=== PATIENT | female | born 1935 | race Caucasian/White ===

== ENCOUNTER → 2017-02-24 | Outpatient (CLI) | payer MEDICARE, OTHER | END | disposition home or self-care (01) | LOC: GMAH 10:19 | PROVIDERS: ATTEND Family Medicine | DX: E78.2 Mixed hyperlipidemia (principal) ==

== ENCOUNTER 2018-05-10 16:41 | Emergency (ER) | payer MEDICARE, OTHER ==
--- NOTE | 2018-05-10 17:24 | ED.PDOC ---
History of Present Illness - General Chief Complaint: Trauma Stated Complaint: left elbow, knee and hip pain Time Seen by Provider: 05/10/18 17:23 Source: patient, family Exam Limitations: no limitations - History of Present Illness Initial Comments: Yee Disla 83 y/o female stated pulling out weed on her backyard and sa she pulled it up fell on her left side with dull ache on hips and hips after the incident.Denies neck or head injuries.Also had t-102 after it was taken in ER and patient didn't know that she was febrile.Denies chills ,cough,dysuria. Timing/Duration: 1-3 hours Severity: moderate Improving Factors: nothing Worsening Factors: nothing Allergies/Adverse Reactions: Allergies NO KNOWN ALLERGY Allergy (Unverified 08/21/14 19:20) Home Medications: Ambulatory Orders Carvedilol [Coreg] 3.125 mg PO BID #30 tab 08/30/14 diltiaZEM HCL TAB [Cardizem Tab] 30 mg PO QID #60 tab 08/30/14 Eliquis 2.5 mg PO ONCE 05/10/18 levoFLOXacin [Levaquin] 500 mg PO DAILY 7 Days #7 tab 05/10/18 Review of Systems - Review of Systems Constitutional: States: no symptoms reported EENTM: States: no symptoms reported Respiratory: States: no symptoms reported Cardiology: States: no symptoms reported Gastrointestinal/Abdominal: States: no symptoms reported Genitourinary: States: no symptoms reported Musculoskeletal: States: see HPI Skin: States: see HPI Past Medical History (General) - Patient Medical History Hx Stroke: No Hx of COPD: No Hx Cardiac Disorders: No Hx Congestive Heart Failure: No Hx Hypertension: Yes Hx Diabetes: No Hx Cancer: No Hx Hepatitis C: No Hx MRSA: No Surgical History: appendectomy, cholecystectomy - Vaccination History Hx Tetanus, Diphtheria Vaccination: - unknown Hx Influenza Vaccination: No Hx Pneumococcal Vaccination: Yes - Social History Hx Tobacco Use: No Hx Alcohol Use: No Hx Substance Use: No Hx Substance Use Treatment: No Hx Physical Abuse: No Hx Emotional Abuse: No - Activities of Daily Living Patient Lives Alone: No Grooming Ability: Independent Eating (Feeding) Ability: Independent Toileting Ability: Independent Family Medical History - Family History Mother Family History: Unknown Hx Cardiac Disease: Yes - multiple family members Physical Exam - Physical Exam General Appearance: Alert, Comfortable, No apparent distress Eye Exam: bilateral normal Ears, Nose, Throat: hearing grossly normal, normal ENT inspection Neck: non-tender, full range of motion, supple, normal inspection Respiratory: chest non-tender, lungs clear, normal breath sounds, no respiratory distress Cardiovascular/Chest: normal peripheral pulses, regular rate, rhythm, no murmur Peripheral Pulses: radial,right: 2+, radial,left: 2+ Gastrointestinal/Abdominal: normal bowel sounds, non tender, soft, no organomegaly Back Exam: no CVA tenderness, no vertebral tenderness Extremity: pelvis stable, other - tenderness left hip>right hip Neurologic: alert, oriented x 3 Skin Exam: normal color, warm/dry, other - skin tear left elbow Progress - Progress Progress: 05/10/18 19:45 Vital Signs - 8 hr 05/10/18 05/10/18 05/10/18 17:05 17:26 18:57 Temperature 102.7 F H Pulse Rate [ 96 H 99 H 92 H Brachial] Respiratory 18 18 Rate Blood Pressure 171/100 161/98 [Right Arm] O2 Sat by Pulse 95 95 Oximetry 05/10/18 19:47 Pefers to go home than staying in hospital wants to try outpatient [place] first.Vital signs stable.Test result d/w patient 05/10/18 19:48 - Results/Orders Results/Orders: 05/10/18 17:24 IV Care:Saline Lock per Protoc QSHIFT 05/10/18 18:35 URINE CULTURE W/COLONY COUNT Stat 05/10/18 19:35 Flu A&B [INFLUENZA A & B ANTIGEN] Stat 05/10/18 19:43 URINE CULTURE W/COLONY COUNT Stat Laboratory Results - last 24 hr 05/10/18 05/10/18 05/10/18 18:00 18:00 18:00 WBC 13.3 H RBC 4.78 Hgb 15.9 Hct 46.7 MCV 97.6 MCH 33.3 H MCHC 34.1 RDW 14.6 H Plt Count 215 MPV 8.3 Absolute Neuts (auto) 12.00 H Absolute Lymphs (auto) 0.50 L Absolute Monos (auto) 0.80 Absolute Eos (auto) 0.00 Absolute Basos (auto) 0.00 Neutrophils % 90.1 H Lymphocytes % 3.7 L Monocytes % 5.8 Eosinophils % 0.1 L Basophils % 0.3 PT 9.9 INR 0.99 PTT (SP) 22.3 Sodium 140 Potassium 3.1 L Chloride 105 Carbon Dioxide 28 Anion Gap 10.1 L BUN 9 Creatinine 0.69 BUN/Creatinine Ratio 13.0 Random Glucose 127 H Serum Osmolality 279.7 Lactic Acid 1.6 Calcium 9.1 Magnesium 2.0 Total Bilirubin 0.8 Direct Bilirubin < 0.1 Indirect Bilirubin 0.7 AST 24 ALT 21 Alkaline Phosphatase 87 Creatine Kinase 149 H CK-MB (CK-2) 1.5 CK-MB (CK-2) % Not Reportable Troponin I 0.03 B-Natriuretic Peptide 129.0 H Serum Total Protein 7.4 Albumin 3.7 Urine Color Urine Appearance Urine pH Ur Specific [place] Urine Protein Urine Glucose (UA) Urine Ketones Urine Blood Urine Nitrite Urine Bilirubin Urine Urobilinogen Ur Leukocyte Esterase Urine RBC Urine WBC Ur Epithelial Cells Urine Bacteria 05/10/18 18:35 WBC RBC Hgb Hct MCV MCH MCHC RDW Plt Count MPV Absolute Neuts (auto) Absolute Lymphs (auto) Absolute Monos (auto) Absolute Eos (auto) Absolute Basos (auto) Neutrophils % Lymphocytes % Monocytes % Eosinophils % Basophils % PT INR PTT (SP) Sodium Potassium Chloride Carbon Dioxide Anion Gap BUN Creatinine BUN/Creatinine Ratio Random Glucose Serum Osmolality Lactic Acid Calcium Magnesium Total Bilirubin Direct Bilirubin Indirect Bilirubin AST ALT Alkaline Phosphatase Creatine Kinase CK-MB (CK-2) CK-MB (CK-2) % Troponin I B-Natriuretic Peptide Serum Total Protein Albumin Urine Color Yellow Urine Appearance Cloudy Urine pH 7.0 Ur Specific [place] 1.020 Urine Protein Negative Urine Glucose (UA) Negative Urine Ketones Negative Urine Blood Small H Urine Nitrite Positive H Urine Bilirubin Negative Urine Urobilinogen 2.0 H Ur Leukocyte Esterase Negative Urine RBC 0-1 Urine WBC 5-10 H Ur Epithelial Cells 0-1 Urine Bacteria 4+ H flu swab negative - EKG/XRAY/CT XRAY: chest - no acute abnormalities Departure - Departure Clinical Impression: Hip pain, bilateral Fall Qualifiers: Encounter type: initial encounter Qualified Code(s): W19.XXXA - Unspecified fall, initial encounter Fever Qualifiers: Fever type: unspecified Qualified Code(s): R50.9 - Fever, unspecified Urinary tract infection Qualifiers: Urinary tract infection type: site unspecified Hematuria presence: without hematuria Qualified Code(s): N39.0 - Urinary tract infection, site not specified Time of Disposition: 20:53 Disposition: Discharge to Home or Self Care Condition: Fair Departure Forms: ED Discharge - Pt. Copy, Patient Portal Self Enrollment Instructions: Urinary Tract Infection, Adult (DC) Referrals: Rell Howe MD [Primary Care Provider] - 1-2 Weeks Prescriptions: levoFLOXacin [Levaquin] 500 mg PO DAILY 7 Days #7 tab Home Medications: Ambulatory Orders Carvedilol [Coreg] 3.125 mg PO BID #30 tab 08/30/14 diltiaZEM HCL TAB [Cardizem Tab] 30 mg PO QID #60 tab 08/30/14 Eliquis 2.5 mg PO ONCE 05/10/18 levoFLOXacin [Levaquin] 500 mg PO DAILY 7 Days #7 tab 05/10/18 Additional Instructions: Return to ER if symptoms worsen or if fever more than 48 hours;tylenol 500mg every 6 hours for fever
[2018-05-10] MEDS: ACETAMINOPHEN 325 MG TAB PO ONE (18:51)
--- NOTE | 2018-05-10 19:29 | RAD ---
PROCEDURE: Pelvis Clinical History: pain/fall Indication: Same as above Comparison: X-ray of the bilateral hips done concurrently . Technique: Single frontal view of the pelvis Findings: There is no evidence of acute fractures or dislocations involving the bones of the pelvis including the bilateral hip joints, the visualized proximal femora and the sacrum. There is no visualization of any radiopaque foreign bodies in the soft tissues. There is no evidence of periosteal reactions involving the pelvic bones. The joint spaces of the pelvis are relatively well-maintained. The visualized portion of the lower lumbar spine shows moderate amount of degenerative change. The soft tissues are radiographically unremarkable. Impression: Negative for acute pelvic bony trauma Place of interpretation: [id number]. Electronically signed by: Kolton Piña MD 05/10/2018 7:27 PM CDT Workstation: [id number]
--- NOTE | 2018-05-10 19:30 | RAD ---
PROCEDURE: XR CHEST 1 VIEW HISTORY: fever COMPARISON: 08/30/2014 TECHNIQUE: Single projection of the chest was done. FINDINGS: There is no gross evidence of acute thoracic bony trauma . There are no discrete airspace infiltrates, pneumothoraces or pleural effusions. The pulmonary vascularity is normal. The cardiomediastinal silhouette is stable. IMPRESSION: There is no acute pleural-parenchymal process seen in the imaged lung vines. Location of Interpretation: [facility] Electronically signed by: Kolton Piña MD 05/10/2018 7:28 PM CDT Workstation: [id number]
--- NOTE | 2018-05-10 19:31 | RAD ---
PROCEDURE: Hip Bilateral Clinical History: pain/fall Indication: Same as above Comparison: X-ray of the pelvis done concurrently. Technique: Four views of the right and left hip. Findings: There is no evidence of acute fractures or dislocations involving the bones of the right and left hip joint and the adjacent pelvic bones. There are no visualization of radiopaque foreign bodies visualized in the soft tissues. The bone mineralization is normal for patient's age and sex. The right and left femoroacetabular hip joint space is well-maintained. The soft tissues are radiographically unremarkable Impression: Negative for acute bony trauma involving the right or the left hip Location of Interpretation: [facility]iology Electronically signed by: Kolton Piña MD 05/10/2018 7:29 PM CDT Workstation: [id number] ?
[2018-05-10] MEDS: TETANUS,DIPHTHERIA,PERTUSSIS 1 EA SYG IM ONE (19:46)
[2018-05-10] MEDS: levoFLOXacin 750MG IV 750 MG in PREMIX BAG 1 BAG IVPB ONE (19:54)
[2018-05-10 22:07] VITALS: BP 149/88; TEMP 98.5; O2SAT 96
== END 2018-05-10 22:07 | disposition home or self-care (01) ==
LOC: ER 16:41
DX: M25.551 Pain in right hip (principal); M25.552 Pain in left hip; N39.0 Urinary tract infection, site not specified; I10 Essential (primary) hypertension; W18.39XA Other fall on same level, initial encounter; Y93.H2 Activity, gardening and landscaping; Y92.007 Garden or yard of unspecified non-institutional (private) residence as the place of occurrence of the external cause; Z79.01 Long term (current) use of anticoagulants; Z79.899 Other long term (current) drug therapy
CPT/HCPCS: 71045; 72170; 73521; 80048; 80076; 81001; 82550; 82553; 83605; 83880; 84484; 85025; 85610; 85730; 87086; 87502; J1956

== ENCOUNTER → 2019-03-08 | Outpatient (CLI) | payer MEDICARE, OTHER | LOC: GMA MATASK 10:44 | PROVIDERS: ATTEND Family Medicine | DX: I10 Essential (primary) hypertension (principal) ==

== ENCOUNTER → 2020-03-12 | Outpatient (CLI) | payer MEDICARE, OTHER | END | disposition home or self-care (01) | LOC: GMA MATASK 10:20 | PROVIDERS: ATTEND Family Medicine | DX: E78.2 Mixed hyperlipidemia (principal); I10 Essential (primary) hypertension ==